=== PATIENT | male | born 1995 | race Two or more races ===

== ENCOUNTER 2019-07-31 14:49 | Emergency (ER) | payer SELFPAY ==
[~2019-07-31] VITALS: Ht 25.4 cm; Wt 93.0 kg
[2019-07-31 14:57] VITALS: BP 147/94
== END 2019-07-31 15:21 | disposition home or self-care (01) ==
LOC: ER 14:49
DX: T14.8XXA Other injury of unspecified body region, initial encounter (principal); V49.49XA Driver injured in collision with other motor vehicles in traffic accident, initial encounter; Y93.89 Activity, other specified; Y99.8 Other external cause status; Y92.410 Unspecified street and highway as the place of occurrence of the external cause

== ENCOUNTER 2024-04-06 12:15 | Emergency (ER) | payer SELFPAY ==
[~2024-04-06] VITALS: Ht 177.8 cm; Wt 91.3 kg
[2024-04-06 13:21] VITALS: BP 139/73; PULSE 73; RESP 16; TEMP 98.4; O2SAT 97
[2024-04-06] MEDS: LIDOCAINE 1% HCL (LOCAL ANESTH.) INJ 20ML MDV ID ONE (14:21)
[2024-04-06] MEDS ORDERED: IBUP1TAB5 PO (14:49)
[2024-04-06] MEDS ORDERED: BACDST PO (14:49)
[2024-04-06] MEDS ORDERED: CEPH500C PO (14:49)
[2024-04-06] MEDS: cefTRIAXone SOD 1,000 MG VL IM ONE (15:09)
== END 2024-04-06 15:12 | disposition home or self-care (01) ==
LOC: ER 12:35
DX: L72.3 Sebaceous cyst (principal); Z79.1 Long term (current) use of non-steroidal anti-inflammatories (NSAID)
CPT/HCPCS: 10060; 76705; 96372; 99285; J0696; J2003

== ENCOUNTER 2024-06-14 09:25 | Emergency (ER) | payer SELFPAY ==
[~2024-06-14] VITALS: Ht 180.3 cm; Wt 92.9 kg
[~2024-06-14 09:25] MED LIST: BACDST PO; CEPH500C PO; IBUP1TAB5 PO
--- NOTE | 2024-06-14 11:21 | ED.PDOC ---
History of Present Illness(SKN HPI Comments 28 year old male presents for left foot pain stepped on glass 7 days ago at home walking barefoot inside the house 3 days later developed pain to the site of injury able to ambulate to ambulate w/o assistive devices but reports redness x 2 days Denies f/c/n/v/d Chief Complaint: Wound Check Time Seen by MD: 09:44 History of Present Illness: Nurses Notes, Medications, Allergies Allergies: Coded Allergies: NO KNOWN ALLERGIES (Unverified , 07/31/19) Home Meds Active Scripts Ibuprofen (Ibuprofen) 600 Mg Tab, 1 TAB PO TID for 10 Days, #30 TAB 0 Refills Prov:SHEKHAR BANSAL STRATEGIC COMMUNICATIONS SPECIALIST 06/14/24 Cephalexin Monohydrate (Cephalexin) 500 Mg Tab, 1 TAB PO QID for 10 Days, #40 TAB 0 Refills Prov:SHEKHAR BANSAL STRATEGIC COMMUNICATIONS SPECIALIST 06/14/24 Ibuprofen Micronized (Ibuprofen) 600 Mg Tab, 600 MG PO TID for 10 Days, #30 TAB 0 Refills Prov:SHEKHAR BANSAL STRATEGIC COMMUNICATIONS SPECIALIST 04/06/24 Sulfamethoxazole W/Trimethopri (Bactrim Ds Tablet) 1 Tab Tb, 1 TAB PO BID for 7 Days, #14 TAB 0 Refills Prov:SHEKHAR BANSAL STRATEGIC COMMUNICATIONS SPECIALIST 04/06/24 Cephalexin Monohydrate (Cephalexin) 500 Mg Cap, 1 CAP PO QID for 5 Days, #20 CAP 0 Refills Prov:SHEKHAR BANSAL STRATEGIC COMMUNICATIONS SPECIALIST 04/06/24 Information Source: Patient Mode of Arrival: Ambulatory Past Medical History PAST MEDICAL HISTORY: Denies Surgical History: Denies all surgeries Family History Family History: Reviewed,noncontributory to illness Social History Smoker: Non-Smoker Alcohol: Denies ETOH Use Drugs: Denies Drug Use Lives In: Home All Other Systems: Reviewed and Negative (per hpi) Physical Exam General Appearance: No Apparent Distress, Normal HEENT: Normal ENT Inspection, Pharynx Normal, TMs Normal Neck: Full Range of Motion, Non-Tender, Normal, Normal Inspection Respiratory: Chest Non-Tender, Lungs Clear, No Accessory Muscle Use, No Respiratory Distress, Normal Breath Sounds Cardiovascular: No Edema, No JVD, No Murmur, No Gallop, Normal Peripheral Pulses, Regular Rate/Rhythm Breast Exam: Deferred Gastrointestinal: No Organomegaly, Non Tender, No Pulsatile Mass, Normal Bowel Sounds, Soft Genitalia: Deferred Pelvic: Deferred Rectal: Deferred Extremities: No calf tenderness, Normal capillary refill, Normal inspection, Normal range of motion, Non-tender, No pedal edema Musculoskeletal : Apperance: Normal Neurologic: Alert, electronic parts designer II-XII nml as Tested, No Motor Deficits, Normal Affect, Normal Mood, No Sensory Deficits Cerebellar Function: Normal Reflexes: Normal Skin: Dry, Normal Color, Warm Lymphatic: No Adenopathy Was a procedure done? Was a procedure done?: No Images 1 - pin point wound. surround erythema. TTP. no crepitus on palpation. DP 2+. Differential Diagnosis (INTG) Differential Diagnosis: Other X-Ray, Labs, Meds, VS Vital Signs Date Time Temp Pulse Resp B/P (MAP) Pulse Ox O2 Delivery O2 Flow Rate FiO2 06/14/24 13:50 82 16 98 Room Air 06/14/24 13:50 98.1 82 16 129/69 (89) 98 98.1 06/14/24 09:47 98.0 86 19 132/68 (89) 96 Current Medications Medications (Trade) Dose Ordered Sig/Lea Route Start Time Stop Time Status Last Admin Ceftriaxone Sodium (Rocephin) 1,000 mg ONCE ONCE IM 06/14/24 11:30 06/14/24 11:31 DC 06/14/24 11:57 Diphtheria/ Tetanus/Acell Pertussis (Boostrix T-Dap) 0.5 ml ONCE ONCE IM 06/14/24 11:30 06/14/24 11:31 DC 06/14/24 11:58 PATIENT: AUDREY VALENZUELAT: [id number]: [id number] : 1995 LOC: ER ROOM / BED: / AGE / SEX: 28 / M ADM STATUS: REG ER SERVICE 1238 ORDERING PHYSICIAN: SHEKHAR BANSAL NP PROCEDURE(s): LFOOT - L FOOT 3 VIEW XRAY REASON: FB? ORDER NUMBER(s): [id number], ACCESSION NUMBER(s): [id number] CLINICAL INDICATION: FB TECHNIQUE: XY L FOOT 3 VIEW XRAY Comparison: None FINDINGS/IMPRESSION: : There is no evidence of acute fracture or dislocation. Linear subcentimeter density in the inferior soft-tissue of the midfoot measures 0.2 cm possibly representing a small foreign body. Clinical correlation advised. ATED BY: JAVED SPAIN MD DICTATED DATE/TIME: 06/14/24 1320 SIGNED BY: JAVED SPAIN MD SIGNED DATE/TIME: 06/14/24 1320 CC: X-Ray, Labs, Meds, VS Comment Linear subcentimeter density in the inferior soft-tissue of the midfoot measures 0.2 cm possibly representing a small foreign body. Clinical correlation advised. Declined wound exploration at this time Agreed on Ab empirically Return precautions discussed. Time of 1ST Reevaluation: 13:30 Reevaluation 1ST: Improved Patient Education/Counseling: Diagnosis, Treatment Family Education/Counseling: Diagnosis, Treatment Departure 1 Departure Time of Disposition: 13:37 Impression: Primary Impression: Foreign body foot/toe Disposition: 01 HOME / SELF CARE / HOMELESS Condition: Stable e-Prescriptions Ibuprofen (Ibuprofen) 600 Mg Tab 1 TAB PO TID for 10 Days, #30 TAB 0 Refills Prov: SHEKHAR BANSAL NP 06/14/24 Cephalexin Monohydrate (Cephalexin) 500 Mg Tab 1 TAB PO QID for 10 Days, #40 TAB 0 Refills Prov: SHEKHAR BANSAL NP 06/14/24 Discharged With: Self Critical Care Note Critical Care Time?: No Stability Stability form required: No Heart Score Heart Score: Heart Score Response (Comments) Value History N/A 0 EKG N/A 0 Age N/A 0 Risk Factors N/A 0 Troponin N/A 0 Total 0 SHEKHAR BANSAL NP Jun 14, 2024 11:21
[2024-06-14] MEDS: cefTRIAXone SOD 1,000 MG VL IM ONE (11:57)
[2024-06-14] MEDS: TETANUS-DIPTH-ACEL PERTUSSIS 0.5ML SYR Tdap IM ONE (11:58)
--- NOTE | 2024-06-14 12:13 | DVH ---
EXAM: US LEFT LOWER EXTREMITY ULTRASOUN DATE OF SERVICE: 06/14/2024 11:39 AM ORDERING PHYSICIAN: SHEKHAR BANSAL REASON FOR EXAM: stepped on glass. R/o FB TECHNIQUE: Real-time ultrasound was performed in the area of clinical concern COMPARISON: None FINDINGS: Small echogenic focus seen in the plantar surface of the midfoot with twinkle artifact. This measures roughly 4 x 3 x 3 mm IMPRESSION: 1. Appears to be a small foreign body in the plantar surface of the midfoot with the area of clinical tenderness possibly a shard of glass. May consider plain x-ray to cofirm since leaded glass will be radiopaque End of Report
--- NOTE | 2024-06-14 13:23 | DVH ---
CLINICAL INDICATION: FB TECHNIQUE: XY L FOOT 3 VIEW XRAY Comparison: None FINDINGS/IMPRESSION: : There is no evidence of acute fracture or dislocation. Linear subcentimeter density in the inferior soft-tissue of the midfoot measures 0.2 cm possibly repr esenting a small foreign body. Clinical correlation advised.
[2024-06-14] MEDS ORDERED: CEPH500T PO (13:38)
[2024-06-14] MEDS ORDERED: IBUP-1454 PO (13:38)
[2024-06-14 13:50] VITALS: BP 129/69; PULSE 82; RESP 16; TEMP 98.1; O2SAT 98
== END 2024-06-14 13:50 | disposition home or self-care (01) ==
LOC: ER 09:25
DX: S90.852A Superficial foreign body, left foot, initial encounter (principal); Z79.899 Other long term (current) drug therapy; X58.XXXA Exposure to other specified factors, initial encounter; Y93.89 Activity, other specified; Y92.89 Other specified places as the place of occurrence of the external cause; Y99.8 Other external cause status
CPT/HCPCS: 73630; 90471; 90715; 93926; 96372; 99285; J0696